=== PATIENT | female | born 1940 | race Caucasian/White ===

== ENCOUNTER 2016-12-12 19:30 | Emergency (ER) | payer OTHER, MEDICARE ==
[~2016-12-12] VITALS: Ht 149.9 cm; Wt 68.0 kg
[~2016-12-12 19:30] MED LIST: ADULT LOW DOSE81 MG PO; ASPIRIN EC81 M1 PO; CYMBALTA60 MG PO; HYDROCODONE-AP1 EAC6 PO; KEFLEX500 MG PO; KLONOPIN PO; LIPITOR10 MG PO; MIRALAX255 GM PO; MOBIC7.5 MG PO; MORPHINE; NORCO 5-325 TA1 EACH PO; NORTHYX5 MG PO; OXYCODONE-ACET1 EAC2 PO; PERCOCET 10-321 EACH; PERCOCET 5-3251 EACH PO; PREDNISONE 20 M20 M1 PO; PREDNISONE50 MG PO; RESTORIL30 MG PO; TAPAZOLE5 MG PO; VENTOLIN17 GM INH; VITAMIN D1000 UNI1; ZOCOR; [UNRECOGNIZED DRUG - OTHER]
[2016-12-12] MEDS ORDERED: METHOTREXATE 22.5 MG PO (20:02)
[2016-12-12] MEDS ORDERED: LIPITOR10 MG PO (20:03)
[2016-12-12] MEDS ORDERED: FOLIC ACID1 MG PO (20:03)
[2016-12-12] MEDS ORDERED: LEVOTHYROXINE0.05 MG PO (20:03)
[2016-12-12] MEDS ORDERED: PERCOCET 10-321 EACH PO (20:04)
[2016-12-12] MEDS ORDERED: KEFLEX500 MG PO (21:32)
[2016-12-12 22:04] VITALS: BP 121/73
== END 2016-12-12 21:45 | disposition home or self-care (01) ==
LOC: ER 19:30
DX: S02.2XXA Fracture of nasal bones, initial encounter for closed fracture (principal); S61.411A Laceration without foreign body of right hand, initial encounter; S81.812A Laceration without foreign body, left lower leg, initial encounter; S51.011A Laceration without foreign body of right elbow, initial encounter; M19.90 Unspecified osteoarthritis, unspecified site; Z88.2 Allergy status to sulfonamides; W10.9XXA Fall (on) (from) unspecified stairs and steps, initial encounter; Y93.89 Activity, other specified; Y92.89 Other specified places as the place of occurrence of the external cause; Y99.8 Other external cause status

== ENCOUNTER 2018-03-03 10:22 | Inpatient (IN) | payer OTHER, MEDICARE ==
[~2018-03-03] VITALS: Ht 149.9 cm; Wt 68.5 kg
--- NOTE | ~2018-03-03 | EKG ---
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
[~2018-03-03 10:22] MED LIST changes: +FOLIC ACID1 MG PO; +LEVOTHYROXINE0.05 MG PO; +METHOTREXATE 22.5 MG PO; +PERCOCET 10-321 EACH PO
[2018-03-03 10:28] VITALS: BP 151/78
[2018-03-03 11:02] LABS: ABSOLUTE NEUTROPHILS 9.7 thou/uL (1.4-8.2); BASOPHILS 0.4 % (0.0-2.0); EOSINOPHILS 3.9 % (0.0-3.0); HEMATOCRIT 41.2 % (37.0-47.0); HEMOGLOBIN 13.6 gm/dL (12.0-15.0); LYMPHOCYTES 7.9 % (24.0-44.0); MCH 29.7 pg (26.0-34.0); MCHC 33.1 g/dL (28.0-37.0); MCV 89.7 fL (80.0-100.0); MONOCYTES 7.3 % (1.0-8.0); PLATELET COUNT 186 thou/uL (150-400); POLYS 80.5 % (36.0-66.0); RBC 4.59 mil/uL (4.20-5.00); RDW 13.3 % (10.5-14.5); WBC 12.1 thou/uL (4.0-11.0)
[2018-03-03 11:15] LABS: ANION GAP 7 mmol/L (7-16); BUN 12 mg/dL (7-18); CALCIUM 9.2 mg/dL (8.5-10.1); CHLORIDE 104 mmol/L (98-107); CO2 29 mmol/L (21-32); GLUCOSE 110 mg/dL (74-106); POTASSIUM 4.3 mmol/L (3.5-5.1); SODIUM 140 mmol/L (136-145)
[2018-03-03 11:24] LABS: ALBUMIN 3.5 g/dL (3.4-5.0); SGOT 26 U/L (15-37); SGPT 26 U/L (30-65); TOTAL BILIRUBIN 0.4 mg/dL (<0.1-1.0); TROPONIN-I <0.06 ng/mL (<0.06)
[2018-03-03 12:44] VITALS: BP 147/79
[2018-03-03 12:53] VITALS: BP 147/79
[2018-03-03 12:59] VITALS: BP 138/72
[2018-03-03 13:24] VITALS: BP 128/78
[2018-03-03 20:00] VITALS: BP 165/92
[2018-03-04 04:30] VITALS: BP 158/77
[2018-03-04 08:41] VITALS: BP 161/89
[2018-03-04 17:05] VITALS: BP 146/78
[2018-03-04 21:08] VITALS: BP 166/88
[2018-03-05 07:56] VITALS: BP 165/85
[2018-03-05 15:27] VITALS: BP 150/81
[2018-03-05 18:45] VITALS: BP 144/83
[2018-03-06 07:45] VITALS: BP 143/71
[2018-03-06] MEDS ORDERED: CEFUROXIME500 MG PO (09:33)
[2018-03-06 11:05] LABS: FOLIC ACID > 100.0 ng/mL (8.6-58.9)
[2018-03-06 13:20] VITALS: BP 143/71
[2018-03-08 02:10] LABS: ADENOVIRUS Negative (Negative); INFLUENZA A Negative (Negative); INFLUENZA B Negative (Negative); METAPNEUMOVIRUS Negative (Negative); PARAINFLUENZA 1 Negative (Negative); PARAINFLUENZA 2 Negative (Negative); PARAINFLUENZA 3 Negative (Negative); RHINOVIRUS Positive (Negative); RSV A Negative (Negative); RSV B Negative (Negative)
== END 2018-03-06 14:34 | disposition home or self-care (01) | DRG 871 ==
LOC: ER 10:22 → EROBS 12:36 → SICU 12:36 → 4W 12:36 → SICU 03-05 18:55 → ENTRNSPT 03-06 13:50 → EDTRNSPTSTS 03-06 13:59 → SICU 03-06 14:34
PROVIDERS: Hospitalist; Nurse Practitioner Family; Physician Assistant
DX: A41.9 Sepsis, unspecified organism (principal); E43 Unspecified severe protein-calorie malnutrition; J20.9 Acute bronchitis, unspecified; M19.90 Unspecified osteoarthritis, unspecified site; E05.00 Thyrotoxicosis with diffuse goiter without thyrotoxic crisis or storm; M62.84 Sarcopenia; F41.9 Anxiety disorder, unspecified; G47.00 Insomnia, unspecified; Z68.30 Body mass index [BMI] 30.0-30.9, adult; Z79.82 Long term (current) use of aspirin; Z79.899 Other long term (current) drug therapy; Z88.2 Allergy status to sulfonamides
CPT/HCPCS: 10045; 10047; 15002